=== PATIENT | male | born 1985 | race Caucasian/White ===

== ENCOUNTER 2020-07-31 19:01 | Emergency (ER) | payer OTHER ==
[~2020-07-31] VITALS: Ht 170.2 cm; Wt 81.6 kg
--- NOTE | 2020-07-31 19:17 | NUR ---
pt refused all care.
--- NOTE | 2020-07-31 19:17 | NUR ---
PT FEROZ LOVETT, PREBOOK. TAKEN TO CHAIR D
[2020-07-31 19:20] VITALS: BP 123/82
--- NOTE | 2020-07-31 19:20 | NUR ---
pt agrees to care at this time.
--- NOTE | 2020-07-31 19:37 | NUR ---
Dr. Diaz examining patient.
--- NOTE | 2020-07-31 19:52 | NUR ---
PT TAKEN TO XRAY
--- NOTE | 2020-07-31 19:55 | NUR ---
PT RETURN FROM XRAY
--- NOTE | 2020-07-31 20:26 | NUR ---
PATIENT BIB [employer]. PATIENT EXAMINED BY DR. THOMAS . PATIENT MEDICALLY CLEARED AND RELEASED IN CUSTODY IN STABLE CONDITION. ORIGINAL PRE-BOOK FORM GIVEN TO [employer]ER [facility], #[id number]
== END 2020-07-31 20:26 ==
LOC: MED 19:01
DX: S20.211A Contusion of right front wall of thorax, initial encounter (principal); U07.1 COVID-19; Z02.89 Encounter for other administrative examinations; X58.XXXA Exposure to other specified factors, initial encounter; Y93.89 Activity, other specified; Y92.89 Other specified places as the place of occurrence of the external cause; Y99.8 Other external cause status
CPT/HCPCS: 71045; 99283